=== PATIENT | female | born 1955 | race Caucasian/White ===

== ENCOUNTER 2018-07-06 06:42 | Emergency (ER) | payer BC, OTHER ==
--- NOTE | 2018-07-06 06:54 | PDOC ---
History of Present Illness - General Stated Complaint: FALL Time Seen by Provider: 07/06/18 06:54 History Source: Patient - History of Present Illness Initial Comments: 07/06/18 07:18 Patient is a 63 year old female with a PMH of HTN and NIDDM presents to the Emergency following a fall. Patient was cleaning her bathroom this mroning when she stepped backward tripping on a piece of raised wood in the floor. Patient fell backwards on her L side. Denies any head trauma, was immediately ambulatory after falling. Denies any pre-fall lightheadedness, palpitations, shortness of breath. Is now c/o L back pain that is worse when she breathes. Patient denies chest pain, abdominal pain, nausea/vomiting, diarrhea/ constipation, fevers/chills. Allergy: Penicillin Surgical: denies Social: denies toxic habits PMD: Dr. Cecilio Roldan Past History - Past Medical History Allergies/Adverse Reactions: Allergies Allergy/AdvReac Type Severity Reaction Status Date / Time Penicillins Allergy Rash Verified 07/06/18 07:24 Home Medications: Ambulatory Orders Losartan/Hydrochlorothiazide [Losartan-Hctz 100-25 mg Tab] 1 each PO DAILY 07/06 Metoprolol Tartrate [Lopressor] 100 mg PO DAILY 07/06/18 Simvastatin 20 mg PO DAILY 07/06/18 metFORMIN HCL [Glucophage -] 1,000 mg PO DAILY 07/06/18 Anemia: Yes Diabetes: Yes HTN: Yes - Suicide/Smoking/Psychosocial Hx Smoking History: Never smoked Hx Alcohol Use: No Review of Systems - Review of Systems Constitutional: No: Chills, Fever HEENTM: No: Blurred Vision, Double Vision Respiratory: No: Cough, Shortness of Breath Cardiac (ROS): No: Chest Pain, Lightheadedness, Palpitations, Syncope ABD/GI: No: Constipated, Diarrhea, Nausea, Vomiting : No: Burning, Dysuria *Physical Exam - Physical Exam General Appearance: Yes: Nourished, Appropriately Dressed HEENT: positive: EOMI, SMOOTH, Normal Voice, Hearing Grossly Normal Neck: positive: Trachea midline, Supple Respiratory/Chest: positive: Lungs Clear, Normal Breath Sounds Cardiovascular: positive: S1, S2 Gastrointestinal/Abdominal: positive: Normal Bowel Sounds, Soft Musculoskeletal: positive: Other (L inferior scalpular tenderness, no C-spine, L /T/S tenderness). negative: Vertebral Tenderness Integumentary: positive: Normal Color, Dry, Warm Neurologic: positive: Fully Oriented, Alert Medical Decision Making - Medical Decision Making 07/06/18 07:18 Patient presents s/p mechanical fall. VS unremarkable. Lower scapular tenderness on PE. Will obtain PA-Lat CXR to evaluate for rib fracture. Patient declining pain medication at this time. 07/06/18 08:28 Patient resting comfortably. VS stable. Ambulatory around unit. Tolerating PO intake. XR read pending. 07/06/18 08:59 XR shows L 5th rib fracture. Will discharge patient home with supportive care, IS spirometer and return precautions. I discussed the physical exam findings, ancillary test results and final diagnoses with the patient. I answered all of the patient's questions. The patient was satisfied with the care received and felt comfortable with the discharge plan and treatment plan. The patient will return to the Emergency Department with any new, persistent or worsening symptoms. *DC/Admit/Observation/Transfer Diagnosis at time of Disposition: Rib fracture - Discharge Dispostion Disposition: HOME Condition at time of disposition: Good Decision to Admit order: No - Referrals Referrals: Cecilio Chávez MD [Primary Care Provider] - - Patient Instructions Printed Discharge Instructions: DI for Rib Fracture Additional Instructions: You have a fracture of your rib on the L side. The treatment is pain control. You can take Tylenol (not to exceed 4000 mg daily) alternating with Motrin (not to exceed 3200 mg daily) for your pain. We are providing you with an incentive spirometer. Please use it 2-3x/hour while awake to help with your breathing. Return to the Emergency Department for any new/worsening/concerning symptoms including severe pain or shortness of breath. - Post Discharge Activity
[2018-07-06 07:08] VITALS: TEMP 99; BMI 29.2
--- NOTE | 2018-07-06 07:09 | PDOC ---
Attending Attestation - Resident Resident Name: Mague Miles - HPI HPI: 07/06/18 08:29 Pt presents to the ED complaining of L posterior chest pain after a mechanical trip and fall. patient fell backward onto her left side. Did not hit her head and denies LOC. Now complaining of pleuritic pain in her left upper back, directly below the tip of her scapula. 07/06/18 08:29 - Physicial Exam PE: 07/06/18 08:31 agree with resident exam. PAtient is alert and in NAD. She is ambulatory in the Ed. Lungs are clear. + point tenderness in posterior chest wall without ecchymosis. 07/06/18 15:33 - Medical Decision Making 07/06/18 15:34 Pt presents to the ED complaining of chest wall pain after mechanical trip and fall. + single rib fx on CXR. Will give pain control and incentive spirometer and discharge home. PAtient instructed to return immediately to the ED for worsening shortness of breath or fever, other new or worsening symptoms.
[2018-07-06 09:33] VITALS: BP 179/84; PULSE 91
== END 2018-07-06 09:34 | disposition home or self-care (01) ==
LOC: JER 06:42
DX: S22.32XA Fracture of one rib, left side, initial encounter for closed fracture (principal); W01.0XXA Fall on same level from slipping, tripping and stumbling without subsequent striking against object, initial encounter; Y93.E9 Activity, other interior property and clothing maintenance; Y92.012 Bathroom of single-family (private) house as the place of occurrence of the external cause; Y99.8 Other external cause status; I10 Essential (primary) hypertension; E11.9 Type 2 diabetes mellitus without complications; Z79.84 Long term (current) use of oral hypoglycemic drugs; Z86.2 Personal history of diseases of the blood and blood-forming organs and certain disorders involving the immune mechanism
CPT/HCPCS: 71046-TC-FY; 99283-25

== ENCOUNTER 2021-05-28 16:27 | Inpatient (IN) | payer OTHER, BC ==
[2021-05-28] MEDS ORDERED: SODIUM CHLORIDE 0.9% 500 ML INFUS.BAG IV ONE (17:30)
[2021-05-28] MEDS ORDERED: ONDANSETRON 4 MG/2 ML VIAL IVPUSH ONE (17:45)
[2021-05-28 17:56] LABS: BASO % 0.9 % (0-2.0); EOS % 2.5 % (0-4.5); HEMATOCRIT 36.3 % (32.4-45.2); HEMOGLOBIN 12.2 GM/dL (10.7-15.3); LYMPH % 21.3 % (8-40); MCH 28.3 pg (25.7-33.7); MCHC 33.6 g/dl (32.0-36.0); MEAN CELL VOLUME 84.4 fl (80-96); MEAN PLT VOLUME 6.6 fl (7.5-11.1); MONO % 7.8 % (3.8-10.2); NEUT % 67.5 % (42.8-82.8); PLATELET COUNT 260 10^3/uL (134-434); RDW 15.2 % (11.6-15.6); WHITE BLOOD COUNT 4.9 K/mm3 (4.0-10.0)
[2021-05-28 18:18] LABS: CHLORIDE 105 mmol/L (98-107); SODIUM 132 mmol/L (136-145)
[2021-05-28] MEDS ORDERED: ONDANSETRON 4 MG/2 ML VIAL ONE (18:18)
[2021-05-28 18:20] LABS: CALCIUM 8.2 mg/dL (8.5-10.1)
[2021-05-28 18:21] LABS: ALBUMIN 2.8 g/dl (3.4-5.0); BLOOD UREA NITROGEN 18.5 mg/dL (7-18); CO2 25 mmol/L (21-32); GLUCOSE,RANDOM 188 mg/dL (74-106)
[2021-05-28 18:24] LABS: CREATININE 1.3 mg/dL (0.55-1.3)
[2021-05-28 18:25] LABS: BILIRUBIN,TOTAL 0.5 mg/dL (0.2-1)
[2021-05-28 18:26] LABS: TOT PROT 7.3 g/dl (6.4-8.2)
[2021-05-28 18:27] LABS: ALK PHOS 95 U/L (45-117)
[2021-05-28 18:34] LABS: ANISOCYTOSIS 1+; MACROCYTOSIS 0; PLATELET ESTIMATE NORMAL; TARGET CELLS 1+
[2021-05-28 19:04] LABS: ANION GAP 3 MMOL/L (8-16); SGOT/AST 137 U/L (15-37); SGPT/ALT 39 U/L (13-61)
[2021-05-28 19:31] LABS: EPI CELLS 19 /uL (0-25.1); HYALINE CASTS 2 /uL (0-3.1); PH,URINE 6.5 (5.0-8.0); URINE APPEARANCE CLEAR; URINE BACTERIA 29 /uL (0-1359); URINE BILIRUBIN NEGATIVE (NEGATIVE); URINE COLOR YELLOW; URINE GLUCOSE (UA) NEGATIVE (NEGATIVE); URINE KETONE NEGATIVE (NEGATIVE); URINE LEUK ESTERASE 2+ (NEGATIVE); URINE NITRITE NEGATIVE (NEGATIVE); URINE PROTEIN NEGATIVE (NEGATIVE); URINE RBC 15 /uL (0-23.9); URINE WBC 201 /uL (0-25.8)
[2021-05-28 20:47] LABS: CALCIUM 7.8 mg/dL (8.5-10.1)
[2021-05-28 20:48] LABS: BLOOD UREA NITROGEN 18.2 mg/dL (7-18)
[2021-05-28 20:51] LABS: CREATININE 1.1 mg/dL (0.55-1.3)
[2021-05-28] MEDS ORDERED: ACETAMINOPHEN 1000 MG/100 ML VIAL (NON FORMULARY) IVPB ONE (21:14)
[2021-05-28] MEDS ORDERED: SULFAMETHOXAZOLE/TMP 200MG-40MG/5ML PO ONE (21:15)
[2021-05-28] MEDS ORDERED: ACETAMINOPHEN INJECTION 100 ML IVPB ONE (21:26)
[2021-05-29 01:16] VITALS: BMI 25.2
[2021-05-29 01:20] LABS: ALBUMIN 2.9 g/dl (3.4-5.0)
[2021-05-29 01:27] LABS: LACTIC ACID 2.1 mmol/L (0.4-2.0)
[2021-05-29] MEDS ORDERED: SODIUM CHLORIDE 500 ML IV STA (02:01)
[2021-05-29] MEDS ORDERED: ACETAMINOPHEN 1000 MG/100 ML VIAL (NON FORMULARY) IVPB PRN (03:00)
[2021-05-29] MEDS: INSULIN SLIDING SCALE (NOVOLOG) 1 VIAL SQ SCH ×4 (06:02→23:00)
[2021-05-29 08:24] LABS: BASO % 0.5 % (0-2.0); EOS % 2.8 % (0-4.5); HEMATOCRIT 31.7 % (32.4-45.2); HEMOGLOBIN 10.6 GM/dL (10.7-15.3); LYMPH % 21.1 % (8-40); MCH 28.2 pg (25.7-33.7); MCHC 33.5 g/dl (32.0-36.0); MEAN CELL VOLUME 84.4 fl (80-96); MEAN PLT VOLUME 6.3 fl (7.5-11.1); MONO % 9.2 % (3.8-10.2); NEUT % 66.4 % (42.8-82.8); PLATELET COUNT 224 10^3/uL (134-434); RBC 3.76 M/mm3 (3.60-5.2); RDW 15.2 % (11.6-15.6); WHITE BLOOD COUNT 3.2 K/mm3 (4.0-10.0)
[2021-05-29 08:25] LABS: ALBUMIN 2.6 g/dl (3.4-5.0); BLOOD UREA NITROGEN 16.2 mg/dL (7-18); CALCIUM 7.8 mg/dL (8.5-10.1)
[2021-05-29 08:29] LABS: CREATININE 1.5 mg/dL (0.55-1.3)
[2021-05-29 08:30] LABS: BILIRUBIN,TOTAL 0.4 mg/dL (0.2-1); TOT PROT 5.3 g/dl (6.4-8.2)
[2021-05-29 10:45] LABS: ANISOCYTOSIS 1+; MACROCYTOSIS 0; OVALOCYTE 1+; PLATELET ESTIMATE NORMAL; TEAR DROP CELLS 1+
[2021-05-29] MEDS ORDERED: PT OWN MED DRAWER 7, Y5N ONE (11:24)
[2021-05-29] MEDS ORDERED: INSULIN (NOVOLOG) ASPART 100 UNITS/ML 10ML VIAL ONE (11:25)
[2021-05-29] MEDS ORDERED: PATIENT'S OWN MEDICATION (NON-FORMULARY) (Metoprolol Tartrate [Lopressor] 100 MG Tablet) PO SCH (15:00)
[2021-05-29] MEDS ORDERED: ONDANSETRON 4 MG/2 ML VIAL IVPUSH ONE (20:56)
[2021-05-29] MEDS ORDERED: ATORVASTATIN CA 10 MG TABLET (FP) PO SCH (22:00)
[2021-05-30] MEDS ORDERED: ONDANSETRON 4 MG/2 ML VIAL IVPUSH ONE (05:52)
[2021-05-30] MEDS: INSULIN SLIDING SCALE (NOVOLOG) 1 VIAL SQ SCH ×2 (06:17→11:58)
[2021-05-30] MEDS ORDERED: LOSARTAN 50MG/HCTZ 12.5MG 1 TAB PO SCH (09:00)
[2021-05-30] MEDS ORDERED: PT OWN MED DRAWER 7, Y5N ONE (09:27)
[2021-05-30 09:32] VITALS: TEMP 98.5
[2021-05-30 11:09] LABS: BASO % 0.7 % (0-2.0); EOS % 3.5 % (0-4.5); HEMATOCRIT 30.9 % (32.4-45.2); HEMOGLOBIN 10.2 GM/dL (10.7-15.3); LYMPH % 25.3 % (8-40); MCHC 33.1 g/dl (32.0-36.0); MEAN CELL VOLUME 84.5 fl (80-96); MEAN PLT VOLUME 6.9 fl (7.5-11.1); MONO % 9.2 % (3.8-10.2); NEUT % 61.3 % (42.8-82.8); PLATELET COUNT 231 10^3/uL (134-434); RBC 3.66 M/mm3 (3.60-5.2); RDW 14.8 % (11.6-15.6); WHITE BLOOD COUNT 3.4 K/mm3 (4.0-10.0)
[2021-05-30 11:35] LABS: ALBUMIN 2.6 g/dl (3.4-5.0); BLOOD UREA NITROGEN 13.5 mg/dL (7-18); CALCIUM 8.4 mg/dL (8.5-10.1)
[2021-05-30 11:39] LABS: CREATININE 1.4 mg/dL (0.55-1.3)
[2021-05-30 11:40] LABS: BILIRUBIN,TOTAL 0.4 mg/dL (0.2-1); TOT PROT 5.3 g/dl (6.4-8.2)
[2021-05-30] MEDS ORDERED: INSULIN (NOVOLOG) ASPART 100 UNITS/ML 10ML VIAL ONE (11:52)
[2021-05-30 12:34] LABS: ANISOCYTOSIS 0; HELMET CELLS 0; HOWELL-JOLLY BODIES 0; MACROCYTOSIS 0; OVALOCYTE 0; PLATELET ESTIMATE NORMAL; ROULEAU 0; SICKELED CELLS 0; TARGET CELLS 0; TEAR DROP CELLS 0; TOXIC GRANULATION 0
[2021-05-30] MEDS ORDERED: POTASSIUM CHLORIDE TABS 20 MEQ TABLET.ER (FP) PO ONE (13:44)
[2021-05-30 15:15] VITALS: BP 130/68; PULSE 105
== END 2021-05-30 16:57 | disposition home or self-care (01) | DRG 641 ==
LOC: JER 16:27 → JERBED 21:19 → J8W 05-29 00:34
PROVIDERS: ADMIT Internal Medicine; ATTEND Internal Medicine
DX: E86.0 Dehydration (principal); R53.1 Weakness; R19.7 Diarrhea, unspecified; I10 Essential (primary) hypertension; E78.5 Hyperlipidemia, unspecified; E11.9 Type 2 diabetes mellitus without complications; D64.9 Anemia, unspecified; R00.2 Palpitations; Z88.0 Allergy status to penicillin; Z20.822 Contact with and (suspected) exposure to COVID-19
CPT/HCPCS: 36415; 71045-TC-FY; 80048; 80053; 81003; 82040; 82550; 82553; 82962; 83605; 84484; 85025; 86850; 86900; 86901; 87040; 87086; 93005; 93010; 99285-25; C9803; J0131; U0003; U0005